=== PATIENT | female | born 1930 | race Caucasian/White ===

== ENCOUNTER 2018-01-19 15:21 | Emergency (ER) | payer OTHER ==
[~2018-01-19] VITALS: Ht 157.5 cm; Wt 65.8 kg
[2018-01-19] MEDS ORDERED: IRBESARTAN75 MG (15:49)
[2018-01-19] MEDS ORDERED: SYNTHROID88 MCG (15:50)
[2018-01-19] MEDS ORDERED: SYNTHROID75 MCG (15:50)
== END 2018-01-19 20:21 | disposition home or self-care (01) ==
LOC: ER 15:21
DX: K57.30 Diverticulosis of large intestine without perforation or abscess without bleeding (principal); M79.3 Panniculitis, unspecified

== ENCOUNTER 2018-04-14 08:58 | Emergency (ER) | payer OTHER ==
[~2018-04-14] VITALS: Ht 157.5 cm; Wt 63.5 kg
[~2018-04-14 08:58] MED LIST: IRBESARTAN75 MG; SYNTHROID75 MCG; SYNTHROID88 MCG
== END 2018-04-14 10:25 | disposition home or self-care (01) ==
LOC: ER 08:58
DX: R51 Headache (principal)

== ENCOUNTER → 2019-02-25 | Emergency (ER) | payer OTHER ==
[~2019-02-25] VITALS: Ht 157.5 cm; Wt 57.2 kg
[~2019-02-25] MED LIST changes: +ATORVASTATIN CA20 MG PO; +CANDESARTAN CILE8 MG PO; +D3-5050000 UNIT PO; +DOLOGESIC 500-1 EACH PO
== END | disposition home or self-care (01) ==
LOC: ER 13:16
DX: R21 Rash and other nonspecific skin eruption (principal)